=== PATIENT | male | born 1940 | race Two or more races ===

== ENCOUNTER 2020-02-26 19:16 | Inpatient (IN) | payer OTHER ==
[~2020-02-26] VITALS: Ht 167.6 cm; Wt 66.5 kg
[2020-02-26 22:01] LABS: Hemoglobin 10.2 g/dL (13.5-17.5); Red Blood Cells 3.92 10^6/uL (4.5-5.90)
[2020-02-26 22:02] LABS: Hematocrit 32.8 % (41.0-53.0); Mean Corpuscular Volume 83.8 fL (80.0-100.0); Platelet Count (auto) 451 10^3/uL (140-450); White Blood Cell 14.4 10^3/uL (4.4-10.8)
[2020-02-26 22:11] LABS: Basophils % (manual) 0 (0.0-2.0); Blast Cells 0; Eosinophils % (manual) 0 (0-7); Metamyelocytes % 0; Myelocytes % 0; Promyelocytes % 0; Reactive Lymphocytes 0
[2020-02-26 22:21] LABS: Albumin 2.3 g/dL (3.4-5.0); Anion Gap 25 (5-15); Calcium 9.3 mg/dL (8.5-10.1); Chloride 105 mmol/L (98-107); Glucose 264 mg/dL (74-106); Sodium 134 mmol/L (136-145)
[2020-02-26 22:24] LABS: Lactic Acid w/Reflex 4.5 mmol/L (0.4-2.0)
[2020-02-26 22:29] LABS: Alanine Aminotransferase 14 U/L (16-61); Alkaline Phosphatase 207 U/L (45-117); Aspartate Aminotransferase 11 U/L (15-37); Bilirubin, Total 0.5 mg/dL (0.2-1.0); GFR African American 3 mL/min; GFR Non-African American 3 mL/min; Total Protein 7.8 g/dL (6.4-8.2)
[2020-02-26 22:44] LABS: Blood Urea Nitrogen 175 mg/dL (7-18); Carbon Dioxide 4 mmol/L (21-32); Potassium 7.1 mmol/L (3.5-5.1)
[2020-02-27 01:10] LABS: Band Neutrophils % (manual) 1; Lymphocytes % (manual) 4 (10.0-50.0); Monocytes % (manual) 2 (0-12)
[2020-02-27] MEDS ORDERED: diphenhdrAMINE HCL 50 MG/1 ML VL IV ONE (01:30)
[2020-02-27] MEDS ORDERED: LORazepam 2MG/ML-1ML VIAL IV ONE (01:30)
[2020-02-27] MEDS ORDERED: FUROSEMIDE 40 MG/4 ML VIAL IV ONE (03:30)
[2020-02-27] MEDS ORDERED: SODIUM BICARBONATE 8.4% INJ 50ML SYRINGE IV ONE (03:30)
[2020-02-27] MEDS ORDERED: CALCIUM GLUC 4.65meq/50ml D5AE 50 ML IV ONE (03:30)
[2020-02-27] MEDS ORDERED: InsuLIN REG 1unit/0.01ml Soln (100units/ml) IV ONE (03:30)
[2020-02-27] MEDS ORDERED: DEXTROSE (50%) 50ML SYRG IV ONE (03:30)
[2020-02-27] MEDS ORDERED: ALBUTEROL SULF 2.5 MG/0.5ML(0.5%) NEB SOLN NEB ONE (03:30)
[2020-02-27] MEDS ORDERED: SODIUM ZIRCONIUM CYCL 10 GM PAK PO ONE (03:30)
[2020-02-27] MEDS ORDERED: PIPERACILLIN-TAZOB 3.375GM 100 ML IV ONE (04:15)
[2020-02-27] MEDS ORDERED: VANCOMYCIN 1GM/250ML 250 ML IV ONE (04:15)
[2020-02-27] MEDS ORDERED: ACETAMINOPHEN 325 MG TAB PO PRN (07:00)
[2020-02-27] MEDS ORDERED: ONDANSETRON HCL 4 MG/2 ML VIAL IV PRN (07:00)
[2020-02-27] MEDS ORDERED: MORPHINE SULF INJ 2 MG/ML SYRINGE 1ML IV PRN (07:00)
[2020-02-27] MEDS ORDERED: DEXTROSE (50%) 50ML SYRG IV PRN (07:00)
[2020-02-27] MEDS ORDERED: VANCOMYCIN PER PHARMACY 0 MG IV SCH (07:00)
[2020-02-27] MEDS ORDERED: NITROGLYCERIN 0.4 MG SL TAB SL PRN (07:00)
[2020-02-27] MEDS ORDERED: SODIUM BICARBONATE 8.4 % INJ 50ML VIAL IV ONE (08:45)
[2020-02-27] MEDS: SODIUM BICARBONATE 50ML VIAL 150 ML in D5W 5% 1,000 ML IV SCH ×2 (09:00→17:00)
[2020-02-27] MEDS ORDERED: SODIUM CHLORIDE 0.9% 1,000 ML IV ONE (09:15)
[2020-02-27] MEDS ORDERED: BUMETANIDE 2.5mg/10ml (0.25 mg/ml) INJ IV ONE (09:15)
[2020-02-27 09:40] LABS: INR 1.17 (0.9-1.15); Partial Thromboplastin Time 32.5 sec (23.0-31.2)
[2020-02-27] MEDS: PANTOPRAZOLE 40 MG TAB PO SCH (10:00)
[2020-02-27 10:17] LABS: Basophils # (auto) 0 10 ^3/uL (0-0.2); Basophils % (auto) 0.2 % (0.0-2.0); Eosinophils # (auto) 0 10 ^3/uL (0-0.8); Hematocrit 29.9 % (41.0-53.0); Hemoglobin 9.3 g/dL (13.5-17.5); Lymphocytes # (auto) 0.7 10 ^3/uL (0.4-5.4); Lymphocytes % (auto) 3.7 % (10.0-50.0); Mean Corpuscular Hemoglobin 25.5 pg (28.0-32.0); Mean Corpuscular Hgb Conc. 31.1 g/dL (32.0-36.0); Mean Corpuscular Volume 82.2 fL (80.0-100.0); Monocytes # (auto) 0.8 10 ^3/uL (0-1.3); Monocytes % (auto) 4.4 % (0.0-12.0); Neutrophils # (auto) 16.5 10 ^3/uL (1.6-8.6); Neutrophils % (auto) 91.7 % (37.0-80.0); Nucleated Red Blood Cells % 0.1 %; Platelet Count (auto) 395 10^3/uL (140-450); Red Blood Cells 3.64 10^6/uL (4.5-5.90); Red Cell Distribution Width 19.1 % (11.8-14.3)
[2020-02-27 10:49] LABS: Albumin 2.2 g/dL (3.4-5.0); Calcium 8.1 mg/dL (8.5-10.1)
[2020-02-27 10:53] LABS: BUN/Creatinine Ratio 10.2; Bilirubin, Total 0.5 mg/dL (0.2-1.0); Total Protein 7.2 g/dL (6.4-8.2)
[2020-02-27 10:59] LABS: Potassium 6.3 mmol/L (3.5-5.1)
[2020-02-27] MEDS: InsuLIN REG 1unit/0.01ml Soln (100units/ml) SC SCH ×2 (12:00→18:00)
[2020-02-27] MEDS: ACCU-CHEK COMFORT CURVE STRIP VI SCH ×2 (12:26→18:23)
[2020-02-27] MEDS: SODIUM CHLORIDE 0.9% 1,000 ML IV SCH ×2 (12:29→21:00)
[2020-02-27] MEDS ORDERED: PIPERACILLIN-TAZOB 2.25GM 50 ML IV SCH (14:00)
[2020-02-27] MEDS ORDERED: TAMSULOSIN HYDROCHLORIDE 0.4 MG CAP PO ONE (15:30)
[2020-02-27 16:56] LABS: Albumin 2.3 g/dL (3.4-5.0); Calcium 7.5 mg/dL (8.5-10.1); Magnesium 2.8 mg/dL (1.6-2.6); Potassium 5.3 mmol/L (3.5-5.1); Uric Acid 12.3 mg/dL (3.5-7.2)
[2020-02-27 16:59] LABS: Bilirubin, Total 0.5 mg/dL (0.2-1.0); Total Protein 7.7 g/dL (6.4-8.2)
[2020-02-27] MEDS: SODIUM ZIRCONIUM CYCL 10 GM PAK PO SCH (17:00)
[2020-02-27 17:13] LABS: Folate (Folic Acid) 14.37 ng/mL (5.38-24)
[2020-02-27 17:37] LABS: BUN/Creatinine Ratio 11.4; Phosphorus 8.3 mg/dL (2.5-4.90)
[2020-02-27 18:22] LABS: Protein, Urine 108.3 mg/dL (0.0-11.9); Urine Bacteria FEW /hpf (None Seen); Urine Blood 3+ /uL (Negative); Urine Specific Gravity 1.012 (1.001-1.035); Urine WBC 199 /hpf (0 - 3); Urine WBC Clumps PRESENT /hpf (None Seen)
[2020-02-27] MEDS: CEFEPIME 1 GM in SODIUM CHL 0.9% 50 ML IV SCH (18:28)
[2020-02-27 18:32] LABS: Alcohol, Urine < 3.0 mg/dL (0-10); Amphetamine Screen, Urine NEGATIVE (NEGATIVE); Barbiturate Scree,Urine NEGATIVE (NEGATIVE); Benzodiazephine Screen, Urine NEGATIVE (NEGATIVE); Cannabinoid Screen, Urine NEGATIVE (NEGATIVE); Cocaine Screen, Urine NEGATIVE (NEGATIVE); Opiate Scree,Urine NEGATIVE (NEGATIVE); Phencyclidine Screen, Urine NEGATIVE (NEGATIVE)
[2020-02-27 20:35] LABS: Calcium 7.7 mg/dL (8.5-10.1); Potassium 5.4 mmol/L (3.5-5.1)
[2020-02-27 20:44] LABS: BUN/Creatinine Ratio 12.1
[2020-02-27] MEDS ORDERED: CALCIUM ACETATE 667 MG CAP PO ONE (22:45)
[2020-02-28] MEDS: SODIUM BICARBONATE 50ML VIAL 150 ML in D5W 5% 1,000 ML IV SCH ×4 (00:20→23:06)
[2020-02-28] MEDS: SODIUM ZIRCONIUM CYCL 10 GM PAK PO SCH ×4 (04:45→22:00)
[2020-02-28] MEDS: ACCU-CHEK COMFORT CURVE STRIP VI SCH ×4 (05:30→17:10)
[2020-02-28] MEDS: InsuLIN REG 1unit/0.01ml Soln (100units/ml) SC SCH ×4 (06:00→17:10)
[2020-02-28 07:40] LABS: Basophils # (auto) 0 10 ^3/uL (0-0.2); Basophils % (auto) 0.1 % (0.0-2.0); Eosinophils # (auto) 0 10 ^3/uL (0-0.8)
[2020-02-28 07:42] LABS: Hematocrit 29.8 % (41.0-53.0); Lymphocytes # (auto) 0.4 10 ^3/uL (0.4-5.4); Mean Corpuscular Hemoglobin 26.2 pg (28.0-32.0); Mean Corpuscular Hgb Conc. 33.7 g/dL (32.0-36.0); Mean Corpuscular Volume 77.7 fL (80.0-100.0); Monocytes # (auto) 0.9 10 ^3/uL (0-1.3); Monocytes % (auto) 5.9 % (0.0-12.0); Neutrophils # (auto) 13.6 10 ^3/uL (1.6-8.6); Platelet Count (auto) 406 10^3/uL (140-450); Red Blood Cells 3.83 10^6/uL (4.5-5.90); Red Cell Distribution Width 18.5 % (11.8-14.3); White Blood Cell 14.9 10^3/uL (4.4-10.8)
[2020-02-28 08:22] LABS: Albumin 2.4 g/dL (3.4-5.0); Calcium 7.5 mg/dL (8.5-10.1); Magnesium 2.6 mg/dL (1.6-2.6); Potassium 4.4 mmol/L (3.5-5.1)
[2020-02-28 08:26] LABS: Bilirubin, Total 0.4 mg/dL (0.2-1.0); Phosphorus 7.6 mg/dL (2.5-4.90)
[2020-02-28 08:38] LABS: BUN/Creatinine Ratio 12.4
[2020-02-28] MEDS: SODIUM CHLORIDE 0.9% 1,000 ML IV SCH (09:48)
[2020-02-28] MEDS: PANTOPRAZOLE 40 MG TAB PO SCH (10:53)
[2020-02-28] MEDS: CALCIUM ACETATE 667 MG CAP PO SCH ×2 (11:52→18:02)
[2020-02-28] MEDS ORDERED: METOPROLOL TARTRATE 1MG/1ML-5ML VIAL IV PRN (13:00)
[2020-02-28] MEDS ORDERED: METOPROLOL TARTRATE 1MG/1ML-5ML VIAL IV ONE (13:00)
[2020-02-28 14:30] VITALS: BP 118/83
[2020-02-28 16:55] VITALS: BP 141/77
[2020-02-28 17:19] VITALS: BP 118/83
[2020-02-28] MEDS: CEFEPIME 1 GM in SODIUM CHL 0.9% 50 ML IV SCH (18:00)
[2020-02-28] MEDS: TAMSULOSIN HYDROCHLORIDE 0.4 MG CAP PO SCH (18:02)
[2020-02-28 21:33] VITALS: BP 159/70
[2020-02-29] MEDS: ACCU-CHEK COMFORT CURVE STRIP VI SCH ×4 (01:18→18:02)
[2020-02-29 05:12] VITALS: BP 121/67
[2020-02-29] MEDS: InsuLIN REG 1unit/0.01ml Soln (100units/ml) SC SCH ×4 (06:00→18:00)
[2020-02-29 06:34] LABS: Calcium 7.4 mg/dL (8.5-10.1); Magnesium 1.9 mg/dL (1.6-2.6)
[2020-02-29 06:37] LABS: BUN/Creatinine Ratio 13.8; Phosphorus 5.1 mg/dL (2.5-4.90)
[2020-02-29] MEDS: SODIUM ZIRCONIUM CYCL 10 GM PAK PO SCH (06:40)
[2020-02-29 07:05] LABS: Potassium 2.7 mmol/L (3.5-5.1)
[2020-02-29] MEDS: PANTOPRAZOLE 40 MG TAB PO SCH (08:29)
[2020-02-29] MEDS: SODIUM BICARBONATE 50ML VIAL 150 ML in D5W 5% 1,000 ML IV SCH (08:29)
[2020-02-29] MEDS: CALCIUM ACETATE 667 MG CAP PO SCH ×3 (08:29→18:02)
[2020-02-29 09:00] VITALS: BP 118/77
[2020-02-29] MEDS ORDERED: MAGNESIUM SULFATE 1GM/100ML 100 ML IV ONE (09:00)
[2020-02-29] MEDS: POTASSIUM CHL 20 Meq TABLET PO ONE ×2 (09:00→11:27)
[2020-02-29] MEDS ORDERED: POTASSIUM CHL 20 Meq TABLET PO ONE (10:15)
[2020-02-29] MEDS ORDERED: POTASSIUM EFFERVESENT TAB 25 MEQ PO ONE (10:15)
[2020-02-29] MEDS: ENOXAPARIN SOD 30 MG/0.3 ML SYRINGE SC SCH (11:28)
[2020-02-29] MEDS: SODIUM CHLORIDE 0.9% 1,000 ML IV SCH (11:28)
[2020-02-29 12:44] VITALS: BP 131/80
[2020-02-29 17:00] VITALS: BP 98/58
[2020-02-29] MEDS: CEFEPIME 1 GM in SODIUM CHL 0.9% 50 ML IV SCH (18:01)
[2020-02-29] MEDS: TAMSULOSIN HYDROCHLORIDE 0.4 MG CAP PO SCH (18:02)
[2020-02-29 22:00] VITALS: BP 133/88
[2020-02-29] MEDS: LINEZOLID 600MG TABLET PO SCH (22:00)
[2020-03-01] MEDS: SODIUM CHLORIDE 0.9% 1,000 ML IV SCH ×2 (00:40→14:45)
[2020-03-01] MEDS: ACCU-CHEK COMFORT CURVE STRIP VI SCH ×4 (00:40→18:15)
[2020-03-01 05:09] VITALS: BP 101/64
[2020-03-01] MEDS: InsuLIN REG 1unit/0.01ml Soln (100units/ml) SC SCH ×4 (06:00→18:00)
[2020-03-01 06:07] LABS: Basophils # (auto) 0 10 ^3/uL (0-0.2); Eosinophils # (auto) 0 10 ^3/uL (0-0.8); Lymphocytes # (auto) 1.2 10 ^3/uL (0.4-5.4); Neutrophils # (auto) 14.3 10 ^3/uL (1.6-8.6); Red Blood Cells 3.62 10^6/uL (4.5-5.90)
[2020-03-01 06:09] LABS: Basophils % (auto) 0.1 % (0.0-2.0); Eosinophils % (auto) 0.1 % (0.0-7.0); Hematocrit 28.2 % (41.0-53.0); Hemoglobin 9.7 g/dL (13.5-17.5); Lymphocytes % (auto) 7.4 % (10.0-50.0); Mean Corpuscular Hemoglobin 26.7 pg (28.0-32.0); Mean Corpuscular Hgb Conc. 34.2 g/dL (32.0-36.0); Monocytes % (auto) 6.2 % (0.0-12.0); Neutrophils % (auto) 86.2 % (37.0-80.0); Platelet Count (auto) 265 10^3/uL (140-450); Red Cell Distribution Width 18.5 % (11.8-14.3); White Blood Cell 16.6 10^3/uL (4.4-10.8)
[2020-03-01 06:28] LABS: Potassium 3.1 mmol/L (3.5-5.1)
[2020-03-01 06:36] LABS: BUN/Creatinine Ratio 13.9
[2020-03-01] MEDS ORDERED: POTASSIUM CHL 20 Meq TABLET PO ONE (08:45)
[2020-03-01 09:00] VITALS: BP 104/78
[2020-03-01] MEDS: LINEZOLID 600MG TABLET PO SCH ×2 (11:26→22:21)
[2020-03-01] MEDS: PANTOPRAZOLE 40 MG TAB PO SCH (11:26)
[2020-03-01] MEDS: ENOXAPARIN SOD 30 MG/0.3 ML SYRINGE SC SCH (11:27)
[2020-03-01] MEDS ORDERED: CALCIUM ACETATE 667 MG CAP PO SCH (12:00)
[2020-03-01] MEDS: CALCIUM ACETATE 667 MG CAP PO SCH (12:50)
[2020-03-01 13:00] VITALS: BP 140/76
[2020-03-01 17:00] VITALS: BP 118/79
[2020-03-01] MEDS: CEFEPIME 1 GM in SODIUM CHL 0.9% 50 ML IV SCH (18:07)
[2020-03-01] MEDS: TAMSULOSIN HYDROCHLORIDE 0.4 MG CAP PO SCH (18:08)
[2020-03-01 20:00] VITALS: BP 134/84
[2020-03-01 22:00] VITALS: BP 134/84
[2020-03-02] MEDS: ACCU-CHEK COMFORT CURVE STRIP VI SCH ×5 (00:22→23:15)
[2020-03-02] MEDS: SODIUM CHLORIDE 0.9% 1,000 ML IV SCH ×2 (04:14→15:35)
[2020-03-02 05:37] LABS: Basophils # (auto) 0 10 ^3/uL (0-0.2); Basophils % (auto) 0.1 % (0.0-2.0); Eosinophils # (auto) 0.2 10 ^3/uL (0-0.8); Lymphocytes # (auto) 1.3 10 ^3/uL (0.4-5.4)
[2020-03-02 05:40] LABS: Eosinophils % (auto) 1.5 % (0.0-7.0); Hematocrit 28.9 % (41.0-53.0); Hemoglobin 9.3 g/dL (13.5-17.5); Lymphocytes % (auto) 8.1 % (10.0-50.0); Mean Corpuscular Hemoglobin 25.6 pg (28.0-32.0); Mean Corpuscular Hgb Conc. 32.1 g/dL (32.0-36.0); Mean Corpuscular Volume 79.6 fL (80.0-100.0); Monocytes % (auto) 6.2 % (0.0-12.0); Neutrophils # (auto) 13.5 10 ^3/uL (1.6-8.6); Neutrophils % (auto) 84.1 % (37.0-80.0); Platelet Count (auto) 268 10^3/uL (140-450); Red Blood Cells 3.62 10^6/uL (4.5-5.90); Red Cell Distribution Width 18.2 % (11.8-14.3)
[2020-03-02 06:00] LABS: BUN/Creatinine Ratio 13.6; Calcium 8.2 mg/dL (8.5-10.1); Potassium 3.3 mmol/L (3.5-5.1)
[2020-03-02] MEDS: InsuLIN REG 1unit/0.01ml Soln (100units/ml) SC SCH ×5 (06:00→23:16)
[2020-03-02] MEDS: ENOXAPARIN SOD 30 MG/0.3 ML SYRINGE SC SCH (09:29)
[2020-03-02] MEDS: PANTOPRAZOLE 40 MG TAB PO SCH (09:29)
[2020-03-02] MEDS: LINEZOLID 600MG TABLET PO SCH ×2 (09:29→23:15)
[2020-03-02 09:47] VITALS: BP 105/64
[2020-03-02] MEDS ORDERED: POTASSIUM CHL 20 Meq TABLET PO ONE (10:30)
[2020-03-02 15:00] VITALS: BP 124/74
[2020-03-02] MEDS: CEFEPIME 1 GM in SODIUM CHL 0.9% 50 ML IV SCH (17:28)
[2020-03-02] MEDS: TAMSULOSIN HYDROCHLORIDE 0.4 MG CAP PO SCH (17:45)
[2020-03-03] VITALS: BP 154/91
[2020-03-03] MEDS: InsuLIN REG 1unit/0.01ml Soln (100units/ml) SC SCH ×3 (06:00→17:38)
[2020-03-03 06:02] LABS: BUN/Creatinine Ratio 12.4; Calcium 8.1 mg/dL (8.5-10.1); Magnesium 1.7 mg/dL (1.6-2.6); Potassium 3.6 mmol/L (3.5-5.1)
[2020-03-03] MEDS: SODIUM CHLORIDE 0.9% 1,000 ML IV SCH (07:00)
[2020-03-03] MEDS: ACCU-CHEK COMFORT CURVE STRIP VI SCH ×3 (07:01→17:40)
[2020-03-03 08:32] VITALS: BP 139/77
[2020-03-03] MEDS: PANTOPRAZOLE 40 MG TAB PO SCH (09:07)
[2020-03-03] MEDS: LINEZOLID 600MG TABLET PO SCH ×2 (09:08→22:44)
[2020-03-03] MEDS: ENOXAPARIN SOD 30 MG/0.3 ML SYRINGE SC SCH (09:08)
[2020-03-03] MEDS ORDERED: MAGNESIUM OXIDE 400 MG TAB PO ONE (10:15)
[2020-03-03 12:41] VITALS: BP 105/63
[2020-03-03 17:00] VITALS: BP 106/72
[2020-03-03] MEDS: TAMSULOSIN HYDROCHLORIDE 0.4 MG CAP PO SCH (18:02)
[2020-03-03] MEDS: MAGNESIUM OXIDE 400 MG TAB PO SCH (22:44)
[2020-03-04] VITALS: BP 126/79
[2020-03-04] MEDS: ACCU-CHEK COMFORT CURVE STRIP VI SCH ×4 (00:05→18:14)
[2020-03-04] MEDS: InsuLIN REG 1unit/0.01ml Soln (100units/ml) SC SCH ×4 (05:37→18:00)
[2020-03-04 05:51] LABS: Potassium 3.6 mmol/L (3.5-5.1)
[2020-03-04 05:53] LABS: BUN/Creatinine Ratio 10.8
[2020-03-04 08:00] VITALS: BP 107/69
[2020-03-04] MEDS: ENOXAPARIN SOD 30 MG/0.3 ML SYRINGE SC SCH (09:14)
[2020-03-04] MEDS: LINEZOLID 600MG TABLET PO SCH ×2 (09:14→21:48)
[2020-03-04] MEDS: PANTOPRAZOLE 40 MG TAB PO SCH (09:14)
[2020-03-04] MEDS: SODIUM CHLORIDE 0.9% 1,000 ML IV SCH ×2 (09:15→21:48)
[2020-03-04] MEDS: MAGNESIUM OXIDE 400 MG TAB PO SCH ×2 (09:15→21:48)
[2020-03-04 16:13] VITALS: BP 92/61
[2020-03-04] MEDS: TAMSULOSIN HYDROCHLORIDE 0.4 MG CAP PO SCH (18:20)
[2020-03-04 22:00] VITALS: BP 123/78
[2020-03-05] MEDS: ACCU-CHEK COMFORT CURVE STRIP VI SCH ×5 (00:14→23:30)
[2020-03-05 05:42] VITALS: BP 136/86
[2020-03-05] MEDS: InsuLIN REG 1unit/0.01ml Soln (100units/ml) SC SCH ×5 (06:00→23:30)
[2020-03-05 07:38] LABS: Potassium 3.4 mmol/L (3.5-5.1)
[2020-03-05 07:45] LABS: BUN/Creatinine Ratio 10.7; Calcium 7.8 mg/dL (8.5-10.1); Magnesium 1.7 mg/dL (1.6-2.6); Phosphorus 2.2 mg/dL (2.5-4.90)
[2020-03-05 09:00] VITALS: BP 108/81
[2020-03-05] MEDS: MAGNESIUM OXIDE 400 MG TAB PO SCH ×2 (09:50→22:30)
[2020-03-05] MEDS: ENOXAPARIN SOD 30 MG/0.3 ML SYRINGE SC SCH (09:50)
[2020-03-05] MEDS: LINEZOLID 600MG TABLET PO SCH ×2 (09:50→22:30)
[2020-03-05] MEDS: SODIUM BICARBONATE 650 MG TAB PO SCH ×2 (09:50→22:30)
[2020-03-05] MEDS: SODIUM CHLORIDE 0.9% 1,000 ML IV SCH ×2 (09:51→23:35)
[2020-03-05] MEDS: PANTOPRAZOLE 40 MG TAB PO SCH (09:51)
[2020-03-05] MEDS ORDERED: MAGNESIUM OXIDE 400 MG TAB PO ONE (10:15)
[2020-03-05] MEDS ORDERED: POTASSIUM CHL 20 Meq TABLET PO ONE (10:15)
[2020-03-05] MEDS ORDERED: POTASSIUM PHOSPHATE 26.4 MEQ in SODIUM CHL 0.9% 100 ML IV ONE (10:15)
[2020-03-05 13:00] VITALS: BP 140/76
[2020-03-05 17:00] VITALS: BP 100/63
[2020-03-05] MEDS: TAMSULOSIN HYDROCHLORIDE 0.4 MG CAP PO SCH (17:47)
[2020-03-05 22:00] VITALS: BP 133/78
[2020-03-06] MEDS: InsuLIN REG 1unit/0.01ml Soln (100units/ml) SC SCH ×2 (06:00→12:00)
[2020-03-06] MEDS: ACCU-CHEK COMFORT CURVE STRIP VI SCH ×2 (06:27→12:46)
[2020-03-06 08:00] VITALS: BP 140/81
[2020-03-06] MEDS: SODIUM CHLORIDE 0.9% 1,000 ML IV SCH (08:14)
[2020-03-06 09:00] VITALS: BP 140/81
[2020-03-06 09:46] LABS: Potassium 4.1 mmol/L (3.5-5.1)
[2020-03-06 09:49] LABS: BUN/Creatinine Ratio 8.8
[2020-03-06] MEDS ORDERED: CEPHALEXIN 250 MG CAP PO SCH ×2 (10:00)
[2020-03-06] MEDS: MAGNESIUM OXIDE 400 MG TAB PO SCH (10:24)
[2020-03-06] MEDS: PANTOPRAZOLE 40 MG TAB PO SCH (10:25)
[2020-03-06] MEDS: SODIUM BICARBONATE 650 MG TAB PO SCH (10:25)
[2020-03-06] MEDS: ENOXAPARIN SOD 30 MG/0.3 ML SYRINGE SC SCH (10:25)
[2020-03-06 14:37] VITALS: BP 140/81
== END 2020-03-06 15:30 | disposition home or self-care (01) | DRG 871 ==
LOC: EDBD 19:16 → ER 19:23 → OVERFLOW 19:24 → TELE-CENTR 02-28 14:02
PROVIDERS: ADMIT Nurse Practitioner; ATTEND Internal Medicine
DX: A41.9 Sepsis, unspecified organism (principal); N17.0 Acute kidney failure with tubular necrosis; J96.00 Acute respiratory failure, unspecified whether with hypoxia or hypercapnia; R65.21 Severe sepsis with septic shock; G92 Toxic encephalopathy; E87.2 Acidosis; N39.0 Urinary tract infection, site not specified; E87.3 Alkalosis; N13.9 Obstructive and reflux uropathy, unspecified; F03.90 Unspecified dementia, unspecified severity, without behavioral disturbance, psychotic disturbance, mood disturbance, and anxiety; E87.5 Hyperkalemia; N18.9 Chronic kidney disease, unspecified; N21.0 Calculus in bladder; R68.0 Hypothermia, not associated with low environmental temperature; I13.10 Hypertensive heart and chronic kidney disease without heart failure, with stage 1 through stage 4 chronic kidney disease, or unspecified chronic kidney disease; E11.22 Type 2 diabetes mellitus with diabetic chronic kidney disease; R94.31 Abnormal electrocardiogram [ECG] [EKG]; R80.9 Proteinuria, unspecified; R31.9 Hematuria, unspecified; Z82.49 Family history of ischemic heart disease and other diseases of the circulatory system; Z82.3 Family history of stroke; Z79.4 Long term (current) use of insulin; Z20.822 Contact with and (suspected) exposure to COVID-19
CPT/HCPCS: 36415; 36600; 70450; 71045; 74176; 76775; 80048; 80053; 80307; 80320; 80329; 81001; 82140; 82306; 82550; 82570; 82607; 82746; 82805; 82962; 83036; 83605; 83735; 83880; 83930; 84100; 84132; 84156; 84300; 84443; 84484; 84550; 85007; 85025; 85027; 85379; 85610; 85730; 87040; 87045; 87077; 87086; 87186; 87426; 87427; 93005; 94644; 97110; 97116; 97530; 99291; G0378; J0610; J1815; J2543